=== PATIENT | male | born 1995 | race African-American/Black ===

== ENCOUNTER 2016-07-02 08:44 | Emergency (ER) | payer SELFPAY ==
[~2016-07-02] VITALS: Ht 182.9 cm; Wt 80.0 kg
[~2016-07-02 08:44] MED LIST: ALBU6.7H INH; CYCL5TAB PO; DICL50TA3 PO
[2016-07-02 08:46] VITALS: BP 126/56; PULSE 117; RESP 17; TEMP 99.3; O2SAT 99
[2016-07-02 09:01] VITALS: BP 131/58; PULSE 109; RESP 16; TEMP 100.9; O2SAT 97
[2016-07-02] MEDS ORDERED: KETOROLAC TROMETHAMINE 30 MG/ML (IVP) VIAL IV PUSH ONE (09:30)
[2016-07-02] MEDS ORDERED: ACETAMINOPHEN 500 MG CPLT PO ONE (09:30)
[2016-07-02] MEDS ORDERED: SODIUM CHLOR 0.9% 1000 ML INJ 1,000 ML IV ONE (09:30)
--- NOTE | 2016-07-02 09:36 | PD ---
HPI Chief Complaint: Cold / Flu Symptoms Time Seen by Provider: 09:12 Travel History International Travel<30 days: No Contact w/Intl Traveler<30days: No Traveled to known affect area: No History of Present Illness HPI 21yo M with PMH of asthma presents to the ED with c/o fever, nasal congestion, throat pain, left ear pain, mucous in throat and throbbing headache that feels like migraine for 2 days. Pt state it hurts when he drinks cold fluid. Denies any rash, chest pain, sob, n/v, abdominal pain, focal weakness or numbness. PFSH Past Medical History Asthma: Yes Diminished Hearing: No Influenza Vaccination: Yes ?: Not Past Surgical History Surgical History: No Previous Surgery Social History Alcohol Use: No Tobacco Use: No Substance Use: No Allergies-Medications (Allergen,Severity, Reaction): Coded Allergies: No Known Allergies (Unverified , 07/02/16) Reported Meds & Prescriptions Reported Meds & Active Scripts Active No Active Prescriptions or Reported Medications Review of Systems Except as stated in HPI: all other systems reviewed are Neg Physical Exam Narrative GENERAL: 21yo M in mild distress. SKIN: Focused skin assessment warm/dry. HEAD: Atraumatic. Normocephalic. +TTP right maxilla. EYES: Pupils equal and round at 4mm bilaterally. EOMI. No scleral icterus. No injection or drainage. ENT: Increased nasal turbinate swelling on left. Throat: Mildly erythematous. No exudate. Uvula midline. Ears: Bilateral cerumen impaction. NECK: +TTP right anterior cervical lymphadenopathy. No nuchal rigidity. CARDIOVASCULAR: Regular rate and rhythm. No murmur appreciated. RESPIRATORY: No accessory muscle use. Clear to auscultation. Breath sounds equal bilaterally. GASTROINTESTINAL: Abdomen soft, non-tender, nondistended. MUSCULOSKELETAL: No obvious deformities. No clubbing. No cyanosis. No edema. NEUROLOGICAL: Awake and alert. No obvious cranial nerve deficits. Motor grossly within normal limits. Normal speech. PSYCHIATRIC: Appropriate mood and affect; insight and judgment normal. Data Data Last Documented VS Vital Signs Date Time Temp Pulse Resp B/P Pulse Ox O2 Delivery O2 Flow Rate FiO2 07/02/16 09:56 93 16 107/55 97 Room Air 07/02/16 09:01 100.9 Orders Acetaminophen (Tylenol) (07/02/16 09:30) Sodium Chlor 0.9% 1000 Ml Inj (Ns 1000 M (07/02/16 09:30) Ketorolac Inj (Toradol Inj) (07/02/16 09:30) Influenzae A/B Antigen (07/02/16 09:19) Group A Rapid Strep Screen (07/02/16 09:19) Strep Culture (Group A) (07/02/16 09:35) MDM Medical Decision Making Medical Screen Exam Complete: Yes Emergency Medical Condition: Yes Differential Diagnosis Influenza vs. URI vs. sinus headache vs. viral syndrome Narrative Course 21yo M with flu like symptoms. Pt given toradol 30mg IV and acetaminophen 1000 PO. Pt reevaluated at bedside and he feels better. Headache has resolved and throat pain is better. Strep throat negative. Influenza negative. Return precautions given. Diagnosis Primary Impression: URI (upper respiratory infection) Qualified Code: J06.9 - Upper respiratory tract infection, unspecified type Patient Instructions: General Instructions Departure Forms: Tests/Procedures Additional Instructions: Please follow up with your PMD in 3-7 days. Return to the ED if symptoms worsen. Med/Other Pt SpecificInfo: Prescription(s) given Scripts Acetaminophen Liq (Acetaminophen Extra Strength Liq)500 Mg/15 Ml [id number] Mg PO Q4-6H PRN (PAIN SCALE 1 TO 4) 5 Days Ref 0 Prov:Carmela Hernandez DO 07/02/16 Fluticasone Nasal [place] (Flonase Nasal [place])50 Mcg/Act Spray50 Mcg EACH NARE BID #1 BOTTLE Ref 0 Prov:Carmela Hernandez DO 07/02/16 Disposition: 01 DISCHARGE HOME Condition: Stable Carmela Hernandez DO July 02, 2016 09:36
[2016-07-02 09:56] VITALS: BP 107/55; PULSE 93; RESP 16; O2SAT 97
[2016-07-02] MEDS ORDERED: FLUT1SPR5 EACH NARE (12:19)
[2016-07-02] MEDS ORDERED: ACET500L PO (12:19)
[2016-07-02 12:20] VITALS: BP 140/59; PULSE 95; RESP 16; O2SAT 98
== END 2016-07-02 12:42 | disposition home or self-care (01) ==
LOC: NEPC 08:44
DX: J06.9 Acute upper respiratory infection, unspecified (principal)
CPT/HCPCS: 87081; 87804; 87880; 96361; 96374; 99283; J1885; J7030

== ENCOUNTER 2017-03-26 11:52 | Emergency (ER) | payer SELFPAY ==
[~2017-03-26] VITALS: Ht 182.9 cm; Wt 76.4 kg
[~2017-03-26 11:52] MED LIST changes: +ACET500L PO; -ALBU6.7H INH; -CYCL5TAB PO; -DICL50TA3 PO; +FLUT1SPR5 EACH NARE
[2017-03-26 11:54] VITALS: BP 138/95; PULSE 112; RESP 18; TEMP 100.2; O2SAT 98
[2017-03-26] MEDS ORDERED: ACETAMINOPHEN 500 MG CPLT PO ONE (13:15)
[2017-03-26] MEDS ORDERED: OSEL75 PO (14:13)
--- NOTE | 2017-03-26 14:13 | PD ---
HPI Chief Complaint: Cold / Flu Symptoms Time Seen by Provider: 12:41 Travel History International Travel<30 days: No Contact w/Intl Traveler<30days: No Traveled to known affect area: No History of Present Illness HPI This is a 21-year-old male here with flulike illness times one day. He reports body aches, fevers, sore throat, cough. Symptoms severity is moderate. No aggravating or alleviating factors. No sick contacts or foreign travel. PFSH Past Medical History Asthma: Yes Diminished Hearing: No Respiratory: Yes (asthma as a child) Tetanus Vaccination: < 5 Years Past Surgical History Surgical History: No Previous Surgery Social History Alcohol Use: No Tobacco Use: No Substance Use: No Allergies-Medications (Allergen,Severity, Reaction): Coded Allergies: No Known Allergies (Unverified Adverse Reaction, Unknown, 03/26/17) Reported Meds & Prescriptions Reported Meds & Active Scripts Active Flonase Nasal [place] (Fluticasone Nasal [place]) 50 Mcg/Act [place] 50 Mcg EACH NARE BID Review of Systems Except as stated in HPI: all other systems reviewed are Neg General / Constitutional: Positive: Fever Eyes: No: Visual changes HENT: Positive: Sore Throat, Congestion Cardiovascular: No: Chest Pain or Discomfort Respiratory: Positive: Cough Gastrointestinal: No: Abdominal Pain Genitourinary: No: Dysuria Musculoskeletal: Positive: Myalgias Skin: No Rash Neurologic: No: Weakness Physical Exam Narrative GENERAL: Alert well-appearing 21-year-old male SKIN: Warm and dry. No rash HEAD: Normocephalic. EYES: People's equal, round, reactive to light. EOMs intact. No injection or drainage. Ear/nose/throat: No TM erythema. Clear nasal discharge. Mild pharyngeal erythema without tonsillar hypertrophy or exudate. NECK: Supple, trachea midline. No meningismus CARDIOVASCULAR: Regular rate and rhythm RESPIRATORY: Breath sounds equal bilaterally. No accessory muscle use. GASTROINTESTINAL: Abdomen soft, non-tender, nondistended. MUSCULOSKELETAL: No cyanosis, or edema. BACK: No CVA tenderness. Data Data Last Documented VS Vital Signs Date Time Temp Pulse Resp B/P (MAP) Pulse Ox O2 Delivery O2 Flow Rate FiO2 03/26/17 11:54 100.2 112 18 138/95 (109) 98 Orders Orders Influenzae A/B Antigen (03/26/17 13:12) Acetaminophen (Tylenol) (1/30/18 13:15) [facility] Medical Decision Making Medical Screen Exam Complete: Yes Emergency Medical Condition: Yes Differential Diagnosis Influenza, bronchitis, pneumonia Narrative Course 21 Y/O male with flulike illness times one day. Patient is well-appearing. Low -grade fever and mild tachycardia. He was medicated with Tylenol. influenza a positive. On reexam patient's fever and tachycardia resolved. He is stable and ready for discharge. He'll be treated with Tamiflu. Diagnosis Primary Impression: Influenza A Referrals: [facility] Departure Forms: School Release, Return to School Date: Mar 29, 2017 Tests/Procedures Additional Instructions: He tested positive for influenza A. Tamiflu as directed. Tylenol every 6 hours for fever and pain. Stay well hydrated by drinking plenty of fluids. Rest. Return if he developed new or worsening symptoms Scripts Oseltamivir (Tamiflu) 75 Mg Cap 75 MG PO BID for Mgmt Viral Infection for 5 Days, #10 CAP 0 Refills Prov: Isabella Simpson 03/26/17 Disposition: 01 DISCHARGE HOME Condition: Stable Isabella Simpson Mar 26, 2017 14:13
== END 2017-03-26 14:38 | disposition home or self-care (01) ==
LOC: NEPK 11:52
DX: J10.1 Influenza due to other identified influenza virus with other respiratory manifestations (principal)
CPT/HCPCS: 87804; 99283